=== PATIENT | male | born 1985 | race Caucasian/White ===

== ENCOUNTER 2016-12-12 16:37 | Emergency (ER) | payer OTHER ==
--- NOTE | 2016-12-12 16:43 | ED Physician Documentation ---
PD HPI DYSPNEA - Stated complaint Stated Complaint: SOA/1 DAY POST SURG - History obtained from History obtained from: Patient - History of Present Illness Timing - onset: Yesterday Timing - onset during: Other (got feeling of itching and some dyspnea without throat swelling after taking hydrocodone for pain s/p testicle biopsy for infertility workup. Symptoms again when took pain pill again several hours later and again this morning. Talked with Urology office and nurse there told him to come to ED.) Timing - duration: Days (1) Timing - details: Intermittant Inciting event(s): Other (onset after taking hydrocodone for pain) Associated symptoms: No: Fever, Cough, Wheezing Similar symptoms before: Has not had sx before Recently seen: Surgery (testicle biopsy yesterday in surgical center in [facility] by Urology.) Review of Systems Constitutional: denies: Fever, Chills GI: denies: Nausea, Vomiting Skin: denies: Rash (but felt diffuse itching) PD PAST MEDICAL HISTORY - Past Medical History Cardiovascular: None Respiratory: None - Present Medications Home Medications: Ambulatory Orders Medication Instructions Recorded Confirmed Dexamethasone [Decadron] 4 mg PO DAILY #5 tablet 12/12/16 Hydrocodone/Acetaminophen [Vicodin 1 each PO PRN PRN 12/12/16 12/12/16 5-300 mg Tablet] Ondansetron HCl [Zofran] 4 mg PO PRN PRN 12/12/16 12/12/16 Tramadol HCl 50 mg PO Q6H PRN #20 tablet 12/12/16 - Allergies Allergies/Adverse Reactions: Allergies Allergy/AdvReac Type Severity Reaction Status Date / Time No Known Drug Allergies Allergy Verified 12/12/16 16:44 PD ED PE NORMAL - Vitals Vital signs reviewed: Yes - General General: Alert and oriented X 3, No acute distress, Well developed/nourished - HEENT HEENT: Ears normal, Pharynx benign (no mucosal edema) - Neck Neck: Supple, no meningeal sign, No adenopathy - Cardiac Cardiac: RRR, No murmur - Respiratory Respiratory: Clear bilaterally - Male Male : Other (left scrotal incision healing okay without signs of infection. ) - Derm Derm: Normal color, Warm and dry - Extremities Extremities: No edema, No calf tenderness / cord Results - Vitals Vitals: Vital Signs - 24 hr 12/12/16 12/12/16 16:41 18:40 Temperature 36.5 C 36.8 C Heart Rate 69 62 Respiratory 18 16 Rate Blood Pressure 138/76 H 116/62 O2 Saturation 97 98 Oxygen O2 Source Room air - Labs Labs: Laboratory Tests 12/12/16 12/12/16 17:15 17:15 WBC 10.1 RBC 4.59 L Hgb 14.4 Hct 42.7 MCV 93.1 MCH 31.3 H MCHC 33.6 RDW 13.2 Plt Count 232 MPV 8.8 Neut # 6.1 Lymph # 3.1 [place] # 0.7 Eos # 0.1 Baso # 0.1 Absolute Nucleated RBC 0.00 Nucleated RBCs 0.0 Sodium 139 Potassium 3.6 Chloride 101 Carbon Dioxide 29 Anion Gap 9.0 BUN 10 Creatinine 1.0 Estimated GFR (MDRD) 88 L Glucose 96 Calcium 9.1 Total Bilirubin 0.4 AST 18 ALT 24 Alkaline Phosphatase 65 Total Protein 7.4 Albumin 4.2 Globulin 3.2 Albumin/Globulin Ratio 1.3 Lipase 41 PD MEDICAL DECISION MAKING - ED course Complexity details: considered differential (could be narcotic related histamine release vs. allergy to it. Can change to tramsdol and see how he does. Short steroid course in case it was allergy.), d/w patient Departure - Departure Disposition: 01 Home, Self Care Clinical Impression: Itching due to drug Condition: Stable Record reviewed to determine appropriate education?: Yes Instructions: ED Drug React Allergic Prescriptions: Dexamethasone [Decadron] 4 mg PO DAILY #5 tablet Tramadol HCl 50 mg PO Q6H PRN #20 tablet PRN Reason: Pain Comments: Stop the hydrocodone. Use Tramadol as needed for pain, along with Tylenol. Benadryl for itching if needed. I would use a steroid medicien for a few days in case this was an allergic reaction rather than just side effect of histamine release from felicitas narcotic. Discharge Date/Time: 12/12/16 18:45
[2016-12-12] MEDS ORDERED: traMADol 50 MG TABLET PO STA (17:06)
[2016-12-12] MEDS ORDERED: ACETAMINOPHEN 325 MG TABLET PO STA (17:06)
[2016-12-12] MEDS ORDERED: ACETAMINOPHEN 325 MG TABLET PO ONE (17:13)
[2016-12-12] MEDS ORDERED: traMADol 50 MG TABLET PO ONE (17:13)
[2016-12-12 17:21] LABS: BASOPHILS # (AUTO) 0.1 10^3/uL (0.0-0.1); BASOPHILS % (AUTO) 0.5 %; EOSINOPHILS # (AUTO) 0.1 10^3/uL (0.0-0.7); EOSINOPHILS % (AUTO) 0.8 %; HCT - HEMATOCRIT 42.7 % (42.0-52.0); HGB - HEMOGLOBIN 14.4 g/dL (14.0-18.0); LYMPHOCYTES # (AUTO) 3.1 10^3/uL (1.5-3.5); MEAN CORPUSCULAR HEMOGLOBIN 31.3 pg (27.0-31.0); MEAN CORPUSCULAR HGB CONC 33.6 g/dL (32.0-36.0); MEAN CORPUSCULAR VOLUME 93.1 fL (80.0-94.0); MEAN PLATELET VOLUME 8.8 fL (7.4-11.4); MONOCYTES # (AUTO) 0.7 10^3/uL (0.0-1.0); MONOCYTES % (AUTO) 7.2 %; NEUTROPHILS # (AUTO) 6.1 10^3/uL (1.5-6.6); NEUTROPHILS % (AUTO) 60.5 %; RED BLOOD COUNT 4.59 10^6/uL (4.70-6.10); RED CELL DISTRIBUTION WIDTH 13.2 % (12.0-15.0); UNCORRECTED WHITE BLOOD COUNT 10.1 x10^3/uL; WHITE BLOOD COUNT 10.1 x10^3/uL (4.8-10.8)
[2016-12-12 17:33] LABS: ALBUMIN/GLOBULIN RATIO 1.3 (1.0-2.2); BILIRUBIN,TOTAL 0.4 mg/dL (0.2-1.0); CALCIUM 9.1 mg/dL (8.5-10.3); POTASSIUM 3.6 mmol/L (3.5-5.0); TOTAL PROTEIN 7.4 g/dL (6.7-8.2)
[2016-12-12] MEDS ORDERED: DEXAMETHASONE 10 MG/ML VIAL PO STA (17:57)
[2016-12-12] MEDS ORDERED: DEXAMETHASONE 10 MG/ML VIAL ONE (18:04)
[2016-12-12] MEDS ORDERED: CHERRY SYRUP 10 ML UDC PO ONE (18:05)
[2016-12-12 18:41] VITALS: BP 116/62
== END 2016-12-12 18:45 | disposition home or self-care (01) ==
LOC: ED 16:37
DX: L29.9 Pruritus, unspecified (principal); T40.2X5A Adverse effect of other opioids, initial encounter; Z98.890 Other specified postprocedural states
CPT/HCPCS: 36415; 80053; 83690; 85025; 99283; A9270